=== PATIENT | female | born 1950 | race Caucasian/White ===

== ENCOUNTER 2020-03-17 10:48 | Outpatient (CLI) | payer MEDICARE, OTHER, SELFPAY ==
--- NOTE | 2020-03-17 10:59 | XR_ITS ---
WS: [id number] CHEST 2 VIEWS HISTORY: COUGH,WHEEZE COMPARISON: 02/08/2011 Lungs: Clear with no abnormality. No pleural effusion or pneumothorax. Cardiac size: Normal. Mediastinum/Aorta: Mildly tortuous aorta. Bones: Thoracic spondylitic changes. XR/XR chest 2V* [id number] IMPRESSION: No acute cardiopulmonary disease. Stable chest.
== END 2020-03-17 10:49 | disposition home or self-care (01) ==
LOC: RAD 10:56
PROVIDERS: PCP Internal Medicine; Visit Provider Internal Medicine
DX: R05 Cough (principal); R06.2 Wheezing
CPT/HCPCS: 71046